=== PATIENT | male | born 1960 | race Caucasian/White ===

== ENCOUNTER 2017-05-21 03:32 | Inpatient (IN) | payer OTHER ==
[2017-05-21] MEDS ORDERED: Ondansetron HCl/PF 4 MG/2 ML Vial ONE (04:36)
[2017-05-21 05:21] LABS: Lactic Acid - Sepsis 2.7 mmol/L (0.5-2.2)
[2017-05-21] MEDS ORDERED: Promethazine HCl 25 MG/ML VIAL IM/IV PRN (06:02)
[2017-05-21] MEDS ORDERED: Morphine 4 MG/ML VIAL SLOW IVP PRN (06:02)
[2017-05-21] MEDS ORDERED: Ondansetron HCl/PF 8 MG in Sodium Chloride 0.9% 50 ML IVPB SCH (06:15)
[2017-05-21] MEDS ORDERED: Piperacillin/Tazobactam 4.5 GM in Sodium Chloride 0.9% 100 ML IVPB SCH (06:15)
[2017-05-21] MEDS ORDERED: Sodium Chloride 0.9% 500 ML IV SCH (06:15)
--- NOTE | 2017-05-21 06:20 | HP ---
CHIEF COMPLAINT: Abdominal pain. HISTORY OF PRESENT ILLNESS: The patient is a 57-year-old male who was diagnosed with a vocal cord an d laryngeal cancer. In 04/2016, he had a laryngectomy. In 06/2016, he has been on chemo and radiati on. He developed progressive weight loss and dysphagia and had a PEG tube placed in 02/2017. Since that he has been having some abdominal pain. Over the last 2-3 days, he has been vomiting with some hematemesis and developing increased upper and lower abdominal pain. He says this pain is mainly in the right upper and right lower quadrant right now. PAST MEDICAL HISTORY: Significant for hypertension, COPD, throat cancer. PAST SURGICAL HISTORY: He had throat surgery, hand surgery, G-tube placement. MEDICATIONS: Include hydrocodone, he is on 2 antibiotics and blood pressure medicine. ALLERGIES: No known drug allergies. SOCIAL HISTORY: He is a retired tar heel. He smokes one-half pack per day. He does try to drink alc ohol, but he is not able to take anything orally. He is . FAMILY HISTORY: His mother had Diamante Gehrig's disease. PHYSICAL EXAMINATION: VITAL SIGNS: Temperature 97.7, pulse 89, blood pressure 121/75. GENERAL: Very thin male, awake, alert. HEENT: He has a very hoarse voice and that is difficult to understand. He has multiple scarring of his neck. LUNGS: Hyperresonant. ABDOMEN: Scaphoid, soft, but tender fairly diffusely. He has a G-tube in the left upper quadrant an d a PEG tube. EXTREMITIES: Unremarkable. LABORATORY DATA AND IMAGING: His white count 8.4, H&H is 10 and 33, platelet count 305. Electrolyte s are fine. He had a CT scan showing the G-tube in the distal stomach. There is thickening of the d istal stomach and a tiny possible area of free fluid adjacent to the liver with free air. It is like a small bubble. ASSESSMENT: This could be a perforated ulcer, could be the air from the G-tube from the vomiting. PLAN: Admit, IV antibiotics, n.p.o., Protonix, serial exams. If he gets worse, he may need to be ex plored.
[2017-05-21 06:50] LABS: #Lymphocytes 0.4 thou/uL (1.20-3.40); #Monocytes 0.5 thou/uL (0.11-0.59); #Neutrophils 13.2 thou/uL (1.40-6.50); %Eosinophils 0.1 % (0.0-10.0); %Lymphocytes 2.8 % (21.0-51.0); %Monocytes 3.7 % (0.0-10.0); Hematocrit 32.2 % (42.0-52.0); Mean Platelet Volume 7.3 fL (7.4-10.4); Red Blood Cell (RBC) Count 3.22 mill/uL (4.70-6.10); White Blood Cell (WBC) Count 14.1 thou/uL (4.8-10.8)
[2017-05-21 07:09] LABS: Anion Gap 19 mmol/L (10-20); BUN (Urea Nitrogen) 52 mg/dL (8.4-25.7); Calc. Creatinine Clearance 0 mL/min (70-130); Calcium 9.7 mg/dL (7.8-10.44); Carbon Dioxide 26 mmol/L (22-29); Chloride 93 mmol/L (98-107); Estimated GFR-MDRD 69
[2017-05-21] MEDS ORDERED: Morphine 4 MG/ML VIAL ONE (07:10)
--- NOTE | 2017-05-21 08:19 | RAD ---
KUB: DATE: 05/21/17. COMPARISON: None. HISTORY: Bowel perforation, free intraperitoneal air seen on prior CT. FINDINGS: The small volume free intraperitoneal air seen on the prior CT is not seen on this radiograph, likely secondary to location of the free air and the small amount of the free air. There is a gastrostomy tube overlying the left upper quadrant. The bowel gas pattern appears nonobstructed. There is vascu lar calcification in the left upper quadrant and overlying the pelvis. IMPRESSION: Nonobstructed bowel pattern. The free intraperitoneal air present o the prior CT is not visualized o n this examination, likely secondary to technical factors. POS: [facility]
[2017-05-21] MEDS: Pantoprazole 40 MG VIAL IVP SCH ×2 (09:24→20:42)
[2017-05-21] MEDS: Morphine 4 MG/ML VIAL SLOW IVP PRN ×4 (09:24→22:13)
[2017-05-21] MEDS: D5 1/2 NS w/20 mEq KCL 1,000 ML IV SCH ×3 (09:41→20:42)
[2017-05-21] MEDS: MEROPENEM 1 GM/50 ML 1 GM in Premix Bag 1 BAG IVPB SCH ×2 (14:44→22:13)
--- NOTE | 2017-05-21 16:37 | PDOC.PN ---
- Subjective Encounter Start Date: 05/21/17 Encounter Start Time: 10:40 Pt seen for management of medical comorbidities, including hypertension. Reports abdo pain, denies chest pain, fevers or chills. - Objective MAR Reviewed: Yes Vital Signs & Weight: Vital Signs (12 hours) Temp Pulse Resp BP Pulse Ox 05/21/17 11:35 99.4 F 106 H 24 H 131/75 92 L 05/21/17 07:52 20 92 L 05/21/17 07:48 98.7 F 99 18 131/75 95 05/21/17 07:24 98.8 F 107 H 28 H 127/76 85 L Result Diagrams: 05/21/17 06:35 05/21/17 06:35 Phys Exam - Physical Examination Constitutional: NAD HEENT: moist MMs, oral pharynx no lesions Neck: supple Respiratory: clear to auscultation bilateral Cardiovascular: RRR Gastrointestinal: soft Mild RUQ tenderness, no guarding or rigidity; G-tube+ Musculoskeletal: pulses present Neurological: moves all 4 limbs Psychiatric: normal affect Dx/Plan (1) Hypertension Code(s): I10 - ESSENTIAL (PRIMARY) HYPERTENSION Status: Chronic (2) COPD (chronic obstructive pulmonary disease) Status: Chronic - Plan DVT proph w/SCDs * . Monitor vital signs, titrate antihypertensives as needed. Start PRN IV hydralazine. COPD appears to be stable. Review of Systems - Review of Systems Respiratory: negative: Cough, Dry, Shortness of Breath, Hemoptysis, SOB with Excertion, Pleuritic Pain, Sputum, Wheezing Cardiovascular: negative: Chest Pain, Palpitations, Orthopnea, Paroxysmal Noc. Dyspnea, Edema, Light Headedness Gastrointestinal: Abdominal Pain - Medications/Allergies Allergies/Adverse Reactions: Allergies Allergy/AdvReac Type Severity Reaction Status Date / Time No Known Allergies Allergy Verified 06/12/16 15:54 Medications: Current Medications Meropenem 1 gm/ Device 50 mls @ 100 mls/hr IVPB Q8HR [facility] Last Admin: 05/21/17 14:44 Dose: 50 mls Potassium Chloride/Dextrose/Sod Cl (D5 1/2 Ns W/20 Meq Kcl) 1,000 mls @ 125 mls /hr IV .Q8H [facility] Last Admin: 05/21/17 13:31 Dose: 1,000 mls Morphine Sulfate (Morphine) 2 mg SLOW IVP Q4H PRN PRN Reason: Mild-Moderate Pain (1-5) Morphine Sulfate (Morphine) 4 mg SLOW IVP Q4H PRN PRN Reason: Moderate to Severe Pain (6-10) Last Admin: 05/21/17 13:31 Dose: 4 mg Pantoprazole Sodium (Protonix) 40 mg IVP Q12HR [facility] Last Admin: 05/21/17 09:24 Dose: 40 mg Promethazine HCl (Phenergan) 25 mg IM/IV Q6H PRN PRN Reason: Nausea/Vomiting Sodium Chloride (Flush - Normal Saline) 10 ml IVF Q12HR [facility] Last Admin: 05/21/17 09:37 Dose: 10 ml Sodium Chloride (Flush - Normal Saline) 10 ml IVF PRN PRN PRN Reason: Saline Flush
[2017-05-21] MEDS ORDERED: Heparin 1,000 UNITS/ML VIAL ONE (17:00)
[2017-05-22] MEDS: Morphine 4 MG/ML VIAL SLOW IVP PRN ×5 (02:45→20:11)
[2017-05-22] MEDS: MEROPENEM 1 GM/50 ML 1 GM in Premix Bag 1 BAG IVPB SCH (05:41)
[2017-05-22] MEDS: D5 1/2 NS w/20 mEq KCL 1,000 ML IV SCH ×3 (05:41→20:10)
[2017-05-22] MEDS: Pantoprazole 40 MG VIAL IVP SCH ×2 (09:14→20:09)
[2017-05-22 12:53] LABS: PTT 25.7 SEC (22.9-36.1); PTT 40.1 SEC (22.9-36.1); Prothrombin Time 17.5 SEC (12.0-14.7); Prothrombin Time 17.7 SEC (12.0-14.7)
[2017-05-22 13:09] LABS: ALT (SGPT) 13 U/L (8-55); AST (SGOT) 17 U/L (5-34); Alkaline Phosphatase 69 U/L (40-150); Anion Gap 10 mmol/L (10-20); BUN (Urea Nitrogen) 27 mg/dL (8.4-25.7); Bilirubin, Total 1.3 mg/dL (0.2-1.2); Calc. Creatinine Clearance 94 mL/min (70-130); Calcium 9.3 mg/dL (7.8-10.44); Carbon Dioxide 28 mmol/L (22-29); Chloride 101 mmol/L (98-107); Cholesterol 124 mg/dl (< 200 Desired); Estimated GFR-MDRD Greater than 90; Globulin 3.8 g/dL (2.4-3.5); LDL Cholesterol, Calculated 65 mg/dL; Magnesium 1.7 mg/dL (1.6-2.6); Protein, Total 7.1 g/dL (6.0-8.3)
--- NOTE | 2017-05-22 13:47 | PDOC.PN ---
- Subjective Encounter Start Date: 05/22/17 Encounter Start Time: 08:40 Pt seen for followup re: hypertension. Denies chest pain, shortness of breath. Abdo pain better. - Objective MAR Reviewed: Yes Vital Signs & Weight: Vital Signs (12 hours) Temp Pulse Resp BP BP Pulse Ox 05/22/17 12:00 97.5 F L 99 14 129/79 92 L 05/22/17 11:05 97.9 F 97 20 151/80 H 92 L 05/22/17 08:00 97.9 F 97 20 142/99 H 92 L 05/22/17 03:58 99.1 F 95 18 125/73 92 L Weight Admit Weight 138 lb Weight 138 lb I&O: 05/21/17 05/22/17 05/23/17 06:59 06:59 06:59 Intake Total 3194 1200 Output Total 700 100 Balance 2494 1100 Result Diagrams: 05/21/17 06:35 05/22/17 12:37 Phys Exam - Physical Examination Constitutional: NAD HEENT: moist MMs Neck: supple Respiratory: clear to auscultation bilateral Cardiovascular: RRR Gastrointestinal: positive bowel sounds G-tube Musculoskeletal: pulses present Neurological: moves all 4 limbs Psychiatric: normal affect Skin: no rash, cap refill <2 seconds Dx/Plan (1) Hypertension Code(s): I10 - ESSENTIAL (PRIMARY) HYPERTENSION Status: Chronic (2) COPD (chronic obstructive pulmonary disease) Status: Chronic - Plan PT/OT, out of bed/ambulate, DVT proph w/SCDs Monitor BP and heart rate, titrate antihypertensives PRN. * . Review of Systems - Review of Systems Respiratory: negative: Cough, Dry, Shortness of Breath, Hemoptysis, SOB with Excertion, Pleuritic Pain, Sputum, Wheezing Cardiovascular: negative: Chest Pain, Palpitations, Orthopnea, Paroxysmal Noc. Dyspnea, Edema, Light Headedness - Medications/Allergies Allergies/Adverse Reactions: Allergies Allergy/AdvReac Type Severity Reaction Status Date / Time No Known Allergies Allergy Verified 05/21/17 20:16 Medications: Current Medications Potassium Chloride/Dextrose/Sod Cl (D5 1/2 Ns W/20 Meq Kcl) 1,000 mls @ 125 mls /hr IV .Q8H [facility] Last Admin: 05/22/17 05:41 Dose: 1,000 mls Meropenem 1 gm/ Sodium (Chloride) 100 mls @ 200 mls/hr IVPB Q8HR [facility] Multivitamins 10 ml/ TRACE ELEMENT CONCENTRATE 1 ml/Amino Acids/Electrolytes/ Fat Emulsion Intravenous 2,261 mls @ 94.208 mls/hr IV 2200 [facility] Morphine Sulfate (Morphine) 2 mg SLOW IVP Q4H PRN PRN Reason: Mild-Moderate Pain (1-5) Morphine Sulfate (Morphine) 4 mg SLOW IVP Q4H PRN PRN Reason: Moderate to Severe Pain (6-10) Last Admin: 05/22/17 11:03 Dose: 4 mg Pantoprazole Sodium (Protonix) 40 mg IVP Q12HR [facility] Last Admin: 05/22/17 09:14 Dose: 40 mg Promethazine HCl (Phenergan) 25 mg IM/IV Q6H PRN PRN Reason: Nausea/Vomiting Sodium Chloride (Flush - Normal Saline) 10 ml IVF Q12HR [facility] Last Admin: 05/22/17 09:15 Dose: Not Given Sodium Chloride (Flush - Normal Saline) 10 ml IVF PRN PRN PRN Reason: Saline Flush
[2017-05-22] MEDS: Meropenem 1 GM in Sodium Chloride 0.9% 100 ML IVPB SCH ×2 (13:51→21:16)
--- NOTE | 2017-05-22 15:33 | SPC ---
EXAM: ULTRASOUND GUIDED LEFT UPPER EXTREMITY PICC LINE PLACEMENT: COMPARISON: None. HISTORY: TPN required. FINDINGS: Technically successful left upper extremity PICC line placement. Trim length is 50 cm. Dual-lumen 5 Chinese catheter terminates in the SVC/right atrial junction. Both lumens flush and aspirate without difficulty. TECHNIQUE: Consent was obtained to perform a left upper extremity PICC line placement. The left arm was prepped and draped in sterile fashion. 1% Lidocaine, buffered with sodium bicarbonate, was used for local a nesthesia. Under ultrasound guidance, a micropuncture needle was used to cannulate the basilic vein. A 0.018 guide wire was then advanced through the needle to the level of the superior vena cava. Un jhony fluoroscopy, the wire was advanced into the inferior vena cava, to document venous access. The w jennifer was subsequently pulled back to the SVC/right atrial junction. Trim length is 50 cm. Both lumen flush and aspirate without difficulty. The patient tolerated the procedure well. No immediate postprocedure complication. EXPOSURE: 0.8 minutes. 3475 mGy*^cm2. IMPRESSION: Technically successful left upper extremity PICC line placement with ultrasound guidance. POS: [facility]
[2017-05-22] MEDS: Multivitamins, Adult 10 ML, TRACE ELEMENT CONCENTRATE 1 ML in D30W-AA 10% with Lytes 2,... IV SCH (22:20)
[2017-05-23] MEDS: Morphine 4 MG/ML VIAL SLOW IVP PRN ×6 (00:27→21:17)
[2017-05-23 05:04] LABS: #Eosinphils 0.1 thou/uL (0.0-0.7); #Lymphocytes 0.4 thou/uL (1.20-3.40); #Monocytes 0.5 thou/uL (0.11-0.59); #Neutrophils 9.8 thou/uL (1.40-6.50); %Basophils 0.2 % (0.0-1.0); %Eosinophils 0.5 % (0.0-10.0); %Lymphocytes 3.9 % (21.0-51.0); %Monocytes 4.6 % (0.0-10.0); Hematocrit 25.5 % (42.0-52.0); Mean Platelet Volume 7.6 fL (7.4-10.4); Red Blood Cell (RBC) Count 2.56 mill/uL (4.70-6.10); White Blood Cell (WBC) Count 10.8 thou/uL (4.8-10.8)
[2017-05-23 05:14] LABS: Anion Gap 11 mmol/L (10-20); BUN (Urea Nitrogen) 21 mg/dL (8.4-25.7); Calc. Creatinine Clearance 102 mL/min (70-130); Calcium 9.1 mg/dL (7.8-10.44); Carbon Dioxide 25 mmol/L (22-29); Chloride 104 mmol/L (98-107); Estimated GFR-MDRD Greater than 90
[2017-05-23] MEDS: Meropenem 1 GM in Sodium Chloride 0.9% 100 ML IVPB SCH ×3 (06:30→21:09)
[2017-05-23] MEDS: D5 1/2 NS w/20 mEq KCL 1,000 ML IV SCH ×3 (06:31→23:15)
[2017-05-23] MEDS: Pantoprazole 40 MG VIAL IVP SCH ×2 (08:11→21:08)
--- NOTE | 2017-05-23 13:39 | PRG ---
DATE OF SERVICE: 05/23/2017 ATTENDING PHYSICIAN: Margie Yeh M.D. SUBJECTIVE: A 57-year-old male, hospital day #2. Patient presented with abdominal pain. CT scan showed his previously placed G-tube in the distal stomach with thickening of the distal stomach and a tiny possible area of free fluid adjacent to the liver with free air. This was thought to be either a perforated ulcer or could be air from the G-tube. He was admitted to the Hospital Medicine Service, started on IV antibiotics and made strict n.p.o. OBJECTIVE: VITAL SIGNS: 99.3 temperature, 88 pulse, 24 respirations, O2 sat 91% on room air, blood pressure 129/60. GENERAL: Chronically ill-appearing male. HEENT: Unremarkable. CARDIOVASCULAR: Heart regular rate and rhythm. CHEST: Clear to auscultation. ABDOMEN: Soft, mildly tender in right lower quadrant. PEG tube in place to gravity drainage bag, 725 mL drainage output over 12 hours last p.m. LABORATORY DATA: WBC down to 10.8 today from 14.1 yesterday. ASSESSMENT: 1. 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 2. Status post PEG tube placement in 02/2017. 3. Pneumoperitoneum with tiny focus of free fluid. PLAN: Continue current care on floor as ordered with IV antibiotics, strict n.p.o., and IV fluids. Monitor serial abdominal exam. Continue IV antibiotics. Monitor WBC. If patient's clinical condition should deteriorate, consider operative intervention. History, ROS, physical exam, assessment and plan have been discussed with attending trauma surgeon. BRUNO
--- NOTE | 2017-05-23 14:16 | PDOC.PN ---
- Subjective Encounter Start Date: 05/23/17 Encounter Start Time: 09:40 Pt seen for followup re: hypertension. No chest pain or shortness of breath, no nausea or vomiting. - Objective MAR Reviewed: Yes Vital Signs & Weight: Vital Signs (12 hours) Temp Pulse Resp BP Pulse Ox 05/23/17 11:25 98.5 F 87 20 142/75 H 93 L 05/23/17 08:25 99.3 F 88 24 H 129/60 91 L 05/23/17 07:15 99.3 F 88 24 H 91 L 05/23/17 04:15 98.2 F 85 16 168/84 H 96 Weight Admit Weight 138 lb Weight 2.402 oz I&O: 05/22/17 05/23/17 05/24/17 06:59 06:59 06:59 Intake Total 3194 6508 Output Total 700 775 Balance 7615 2872 Result Diagrams: 05/23/17 04:26 05/23/17 04:26 Additional Labs: Accuchecks 05/23/17 05/23/17 05/22/17 11:50 06:04 23:38 POC Glucose 134 H 129 H 139 H Phys Exam - Physical Examination Constitutional: NAD HEENT: moist MMs, sclera anicteric Neck: supple Respiratory: clear to auscultation bilateral Cardiovascular: RRR, no rub Gastrointestinal: soft, positive bowel sounds RLQ tenderness Neurological: moves all 4 limbs Psychiatric: normal affect Dx/Plan (1) Hypertension Code(s): I10 - ESSENTIAL (PRIMARY) HYPERTENSION Status: Chronic (2) COPD (chronic obstructive pulmonary disease) Status: Chronic - Plan * . BP reasonable, monitor vital signs and titrate antihypertensives as needed. Continue IV antibiotics per surgical team. Review of Systems - Review of Systems Respiratory: negative: Cough, Dry, Shortness of Breath, Hemoptysis, SOB with Excertion, Pleuritic Pain, Sputum, Wheezing Cardiovascular: negative: Chest Pain, Palpitations, Orthopnea, Paroxysmal Noc. Dyspnea, Edema, Light Headedness - Medications/Allergies Allergies/Adverse Reactions: Allergies Allergy/AdvReac Type Severity Reaction Status Date / Time No Known Allergies Allergy Verified 05/21/17 20:16 Medications: Current Medications Potassium Chloride/Dextrose/Sod Cl (D5 1/2 Ns W/20 Meq Kcl) 1,000 mls @ 125 mls /hr IV .Q8H [facility] Last Admin: 05/23/17 06:31 Dose: Not Given Meropenem 1 gm/ Sodium (Chloride) 100 mls @ 200 mls/hr IVPB Q8HR [facility] Last Admin: 05/23/17 13:05 Dose: 100 mls Multivitamins 10 ml/ TRACE ELEMENT CONCENTRATE 1 ml/Amino Acids/Electrolytes/ Fat Emulsion Intravenous 2,261 mls @ 94.208 mls/hr IV 2200 [facility] Last Admin: 05/22/17 22:20 Dose: 2,261 mls Morphine Sulfate (Morphine) 2 mg SLOW IVP Q4H PRN PRN Reason: Mild-Moderate Pain (1-5) Morphine Sulfate (Morphine) 4 mg SLOW IVP Q4H PRN PRN Reason: Moderate to Severe Pain (6-10) Last Admin: 05/23/17 13:06 Dose: 4 mg Pantoprazole Sodium (Protonix) 40 mg IVP Q12HR [facility] Last Admin: 05/23/17 08:11 Dose: 40 mg Promethazine HCl (Phenergan) 25 mg IM/IV Q6H PRN PRN Reason: Nausea/Vomiting Sodium Chloride (Flush - Normal Saline) 10 ml IVF Q12HR [facility] Last Admin: 05/23/17 08:11 Dose: Not Given Sodium Chloride (Flush - Normal Saline) 10 ml IVF PRN PRN PRN Reason: Saline Flush
[2017-05-23] MEDS: Multivitamins, Adult 10 ML, TRACE ELEMENT CONCENTRATE 1 ML in D30W-AA 10% with Lytes 2,... IV SCH (22:00)
[2017-05-24] MEDS: Morphine 4 MG/ML VIAL SLOW IVP PRN ×6 (01:32→22:54)
[2017-05-24] MEDS: D5 1/2 NS w/20 mEq KCL 1,000 ML IV SCH ×3 (05:38→22:55)
[2017-05-24] MEDS: Meropenem 1 GM in Sodium Chloride 0.9% 100 ML IVPB SCH ×3 (06:09→22:08)
[2017-05-24] MEDS: Pantoprazole 40 MG VIAL IVP SCH ×2 (08:43→19:31)
--- NOTE | 2017-05-24 13:17 | PDOC.PN ---
- Subjective Encounter Start Date: 05/24/17 Encounter Start Time: 09:40 Pt seen for followup re: epistaxis. Denies light-headedness, chest pain, nausea or vomiting . - Objective MAR Reviewed: Yes Vital Signs & Weight: Vital Signs (12 hours) Temp Pulse Resp BP BP Pulse Ox 05/24/17 12:35 99.0 F 75 20 137/65 93 L 05/24/17 04:00 99.4 F 84 18 138/74 92 L Weight Admit Weight 138 lb Weight 156 lb 15.506 oz I&O: 05/23/17 05/24/17 05/25/17 06:59 06:59 06:59 Intake Total 5548 3141 Output Total 775 75 Balance 4773 3066 Result Diagrams: 05/23/17 04:26 05/23/17 04:26 Additional Labs: Accuchecks 05/24/17 05/24/17 05/23/17 12:24 05:33 23:34 POC Glucose 146 H 141 H 139 H 05/23/17 18:16 POC Glucose 149 H Phys Exam - Physical Examination Constitutional: NAD HEENT: moist MMs Nose exam: dried blood Neck: supple Respiratory: clear to auscultation bilateral Cardiovascular: RRR Gastrointestinal: soft Mild RLQ tenderness Musculoskeletal: pulses present Neurological: moves all 4 limbs Psychiatric: normal affect Dx/Plan (1) Epistaxis Code(s): R04.0 - EPISTAXIS Status: Acute (2) Hypertension Code(s): I10 - ESSENTIAL (PRIMARY) HYPERTENSION Status: Chronic (3) COPD (chronic obstructive pulmonary disease) Status: Chronic - Plan continue antibiotics, PT/OT, DVT proph w/SCDs * .Add humidifier in oxygen circuit. BP controlled. Pt is on IV antibiotics per surgical team. COPD stable. Review of Systems - Review of Systems Respiratory: negative: Cough, Dry, Shortness of Breath, Hemoptysis, SOB with Excertion, Pleuritic Pain, Sputum, Wheezing Cardiovascular: negative: Chest Pain, Palpitations, Orthopnea, Paroxysmal Noc. Dyspnea, Edema, Light Headedness - Medications/Allergies Allergies/Adverse Reactions: Allergies Allergy/AdvReac Type Severity Reaction Status Date / Time No Known Allergies Allergy Verified 05/21/17 20:16 Medications: Current Medications Potassium Chloride/Dextrose/Sod Cl (D5 1/2 Ns W/20 Meq Kcl) 1,000 mls @ 125 mls /hr IV .Q8H [facility] Last Admin: 05/24/17 05:38 Dose: Not Given Meropenem 1 gm/ Sodium (Chloride) 100 mls @ 200 mls/hr IVPB Q8HR [facility] Last Admin: 05/24/17 06:09 Dose: 100 mls Multivitamins 10 ml/ TRACE ELEMENT CONCENTRATE 1 ml/Amino Acids/Electrolytes/ Fat Emulsion Intravenous 2,261 mls @ 94.208 mls/hr IV 2200 [facility] Last Admin: 05/23/17 22:00 Dose: 2,261 mls Morphine Sulfate (Morphine) 2 mg SLOW IVP Q4H PRN PRN Reason: Mild-Moderate Pain (1-5) Morphine Sulfate (Morphine) 4 mg SLOW IVP Q4H PRN PRN Reason: Moderate to Severe Pain (6-10) Last Admin: 05/24/17 10:15 Dose: 4 mg Pantoprazole Sodium (Protonix) 40 mg IVP Q12HR [facility] Last Admin: 05/24/17 08:43 Dose: 40 mg Promethazine HCl (Phenergan) 25 mg IM/IV Q6H PRN PRN Reason: Nausea/Vomiting Sodium Chloride (Flush - Normal Saline) 10 ml IVF Q12HR [facility] Last Admin: 05/24/17 08:44 Dose: 10 ml Sodium Chloride (Flush - Normal Saline) 10 ml IVF PRN PRN PRN Reason: Saline Flush
--- NOTE | 2017-05-24 17:55 | PRG ---
DATE OF ENCOUNTER: 05/24/2017 This is Zachery Martínez PA-C dictating for Margie Yeh M.D. SUBJECTIVE: The patient appears to be stable. No acute events overnight and patient does ask when h e can go home and when discharge will be happening. It was informed to him that patient will be reev aluated tomorrow by Dr. Vegas, his surgeon. At this time, the patient still remains to be spitting u p some mucous type material as well as bloody discharge as well due to his cancer. At this time, the patient denies any shortness of breath or chest pain. No nausea or vomiting. OBJECTIVE: VITAL SIGNS: Current vital signs, temperature 99.4, pulse 84, respirations 18, O2 saturation 92%, an d blood pressure 138/74. GENERAL: No acute distress at this time. Patient is sitting up in bed. Oxygen in place. He is freddy ked up to TPN and infusing without issue. HEENT: Atraumatic and normocephalic. No JVD. Trachea is midline. RESPIRATORY: Diminished in the bases bilaterally. CARDIOVASCULAR: S1 and S2, regular rate and rhythm. ABDOMEN: Soft, mildly tender in the right upper quadrant, PEG tube is in place to gravity with drain age bag. 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 1. Status post PEG tube placement on 02/2017, pneumoperitoneum with tiny focus of free fluid. PLAN: Continue current care with IV antibiotics. Strict NPO and TPN. Continue to monitor abdominal exam. We appreciate the medical team input for medical management. If the patient continues to cli nically deteriorate, we will consider operative intervention. At this time, the patient has been see n and discussed with and agreed upon the above plan with Dr. Margie Yeh at the time of dictation.
[2017-05-24] MEDS: Multivitamins, Adult 10 ML, TRACE ELEMENT CONCENTRATE 1 ML in D30W-AA 10% with Lytes 2,... IV SCH (22:08)
[2017-05-25] MEDS: Morphine 4 MG/ML VIAL SLOW IVP PRN ×6 (03:05→22:39)
[2017-05-25] MEDS: Meropenem 1 GM in Sodium Chloride 0.9% 100 ML IVPB SCH ×3 (06:23→21:32)
[2017-05-25] MEDS: D5 1/2 NS w/20 mEq KCL 1,000 ML IV SCH ×2 (06:37→15:36)
[2017-05-25] MEDS: Pantoprazole 40 MG VIAL IVP SCH ×2 (09:26→21:32)
--- NOTE | 2017-05-25 10:45 | RAD ---
SMALL BOWEL LIMITED: Date: 05/25/17 HISTORY: Patient is a 57-year-old male with concern for perforation of the stomach or duodenum. TECHNIQUE: Gastrografin contrast media and some air was introduced into the stomach through the gastrostomy tube . FINDINGS: The stomach was well demonstrated. Contrast media moved through the antrum and into the duodenal bulb , and there was some emptying into the duodenum and even into the proximal jejunum. There is noted to be a confined tract extending cranially from the duodenal bulb over the course of approximately 5.0 cm, which gradually narrows. This is certainly concerning for a perforation tract. Some Gastrografin contrast media did extend somewhat into this tract, but not completely filling it. In addition to this elongated tract, there is an abnormal gas collection somewhere between the left l obe of the liver and the fundus and body of the stomach. This gas collection has a very irregular sha pe and maximally measures approximately 4.0 x 8.0 cm in transverse and craniocaudal dimension. The p reviously mentioned tract off the duodenal bulb points towards this region and I feel this is probabl y abnormal extraluminal gas that has collecting from this tract. There is no evidence for outlet obst ruction. No small bowel obstruction. IMPRESSION: There is an elongated tract extending cranially off the duodenal bulb which extends for approximately 5.0 cm pointing towards an abnormal extraluminal gas collection in the upper abdomen presumably betw een the liver and the fundus and body of the stomach, which presumably is abnormal extraluminal gas t hat has collected in this region from the elongated tract off the duodenal bulb. No evidence for free intraperitoneal extravasation of contrast. No evidence for outlet obstruction or small bowel obstruc tion. Findings were relayed to Dr. Larry Vegas by phone at 0920 hours. CODE CR. POS: [facility]
[2017-05-25 11:29] VITALS: BMI 24.1
--- NOTE | 2017-05-25 13:15 | CT ---
ABDOMEN AND PELVIS CT SCAN WITH IV CONTRAST: Date: 05/25/17 HISTORY: 57-year-old male with history of perforated ulcers, abdominal pain. FINDINGS: Marked three vessel coronary artery calcific disease. Small right pleural effusion. Atelectasis and/o r pneumonia involving the right middle lobe and right lower lobe with some mucus or secretions within the bronchus intermedius and some of the right lower lobe bronchi. Gastrostomy tube in place within the stomach. There is a multilobulated appearing fluid collection which appears to be contiguous with the greater curvature of the stomach. This fluid collection measures approximately 4.5 cm transversely and 11.0 c m in anterior posterior dimension and approximately 15.0 cm in craniocaudal dimension. It is of homog eneous low density and does not contain any gas. The norman of this collection appear to be fairly thi n and well-defined. There is, in addition to this collection, to be a second subhepatic collection wh ich measures approximately 3.0 x 5.0 cm in AP and transverse dimensions, and approximately 11.0 cm in craniocaudal dimension. There is also some minimal scattered free fluid around the right lobe of the liver. There is a partia lly contrast-filled and air-filled tract extending cranially off the posterior aspect of the duodenal bulb, extending into the region of the gastrohepatic ligament, where there is a larger collection of air measuring approximately 1.8 x 2.9 x 6.3 cm in size. The liver, gallbladder, pancreas, spleen, and adrenal glands appear unremarkable. There are considerable rotational changes of the right kidney, which is in a somewhat ptotic, low-lyi ng position, without evidence for renal calculus or acute obstruction. There appears to be a possible very tiny amount of free intraperitoneal fluid in the pelvis. Extensive arteriovascular calcific disease of the aorta and iliac vessels. IMPRESSION: 1. Penetrating tract from the duodenal bulb extending cranially with mostly gas in the region of the gastrohepatic ligament consistent with a presumed penetrating ulcer or other penetrating tract from the duodenum. 2. Loculated, somewhat lobulated, fluid collection which appears to be adherent to or directly invol lizeth with the greater curvature of the stomach. Somewhat smaller fluid collection in the subhepatic re gion. Both of these fluid collections have homogeneous low attenuation and appear to be uncomplicated and have not associated air or gas within them. 3. Small right pleural effusion with marked atelectasis and/or pneumonia of the right lower lobe and right middle lobe with some associated mucus or secretions within the bronchus intermedius and right lower lobe bronchi, consideration for bronchoscopy might allow further evaluation of this. 4. Low-lying ptotic, markedly rotated right kidney without renal calculus or acute obstruction. 5. Minimal free intraperitoneal fluid, primarily around the right lobe of the liver. 6. Gastrostomy tube. 7. No free intraperitoneal air. POS: [facility]
[2017-05-25] MEDS ORDERED: Iopamidol 370 76% 50 ML VIAL FS ONE (13:44)
[2017-05-25] MEDS ORDERED: ISOVUE-370 76%-LOCM 1 ML ONE (13:44)
[2017-05-25] MEDS ORDERED: MD-Gastroview 120 ML BOT ONE (13:52)
--- NOTE | 2017-05-25 16:42 | CON ---
DATE OF CONSULTATION: 05/25/2017 CONSULTING PHYSICIAN: Dr. Larry Vegas. REASON FOR CONSULTATION: Right lower lobe and right middle lobe atelectasis. HISTORY OF THE PRESENT ILLNESS: This is a 57-year-old male who is currently in the hospital for eval uation of abdominal pain as it pertains to recent PEG tube placement. He had a CT of the abdomen don e today which caught the lower part of the lung belle. He has an infiltrate and/or atelectasis in t he right lower lobe/right middle lobe region with possible mucus plugging proximal to that. He tells me he has been unable to cough for quite some time. 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 He was having the PEG tube placed ba in February for the purpose of feeding, but is now rely on TPN until that issue has resolved. PAST MEDICAL HISTORY: 1. Throat cancer 2. COPD. 3. Hypertension. PAST SURGICAL HISTORY: 1. Throat surgery. 2. Radiation to the throat area. 3. Hand surgery. 4. G-tube placement. MEDICATIONS PRIOR TO ADMISSION: Hydrocodone, he was also on some antibiotics. ALLERGIES: None. SOCIAL HISTORY: Smokes about half pack per day, heavier in the past, does not consistently drink alc ohol. FAMILY MEDICAL HISTORY: Remarkable for ALS. REVIEW OF SYSTEMS: Otherwise, negative. PHYSICAL EXAMINATION: VITAL SIGNS: Temperature 98.1, pulse 73, respirations 20, O2 sat 93%, blood pressure 144/71. GENERAL: He is awake and alert and is in no apparent distress. HEENT: Remarkable for very soft voice. He has very dry oral mucous membranes. NECK: He has radiation scars, no JVD. LUNGS: He has gross diminished breath sounds in the right base compared to the left. No rhonchi or wheezing. CARDIAC: S1 and S2 regular, without murmur. ABDOMEN: G-tube in place. ABDOMEN: Soft and nontender. EXTREMITIES: No edema. LABORATORY DATA AND IMAGING: White blood cell count 10.8, hematocrit 25.5, and platelet count 247. INR 1.4. Sodium 135, potassium 4.6, BUN 21, creatinine 0.7, glucose 116. I reviewed his CT scan per sonally. ASSESSMENT: 1. Right middle lobe/lower lobe pneumonia and/or atelectasis. 2. Possible mucus plugging. 3. Head and neck cancer. RECOMMENDATIONS: 1. I am going to try and treat him with EzPAP and nebulization treatments to see if we can stimulate his cough reflex and get the mucus out. I will repeat his chest x-ray tomorrow. If we are not able to make any progress with conservative measures, then he will need bronchoscopy. 2. Continue antibiotics as you are doing. 3. Consider adding low dose steroids for mucolytic effect.
--- NOTE | 2017-05-25 16:49 | PDOC.PN ---
- Subjective Encounter Start Date: 05/25/17 Encounter Start Time: 09:20 Pt seen for followup re: hypertension. Denies chest pain or shortness of breath. Abdo pain better. - Objective MAR Reviewed: Yes Vital Signs & Weight: Vital Signs (12 hours) Temp Pulse Resp BP Pulse Ox 05/25/17 11:25 98.1 F 73 20 144/71 H 93 L 05/25/17 07:55 98.8 F 73 18 125/63 94 L Weight Admit Weight 138 lb Weight 158 lb 11.725 oz I&O: 05/24/17 05/25/17 05/26/17 06:59 06:59 06:59 Intake Total 3141 Output Total 75 40 Balance 3066 -40 Result Diagrams: 05/23/17 04:26 05/23/17 04:26 Additional Labs: Accuchecks 05/25/17 05/25/17 05/24/17 11:28 05:55 23:42 POC Glucose 106 129 H 134 H 05/24/17 17:57 POC Glucose 135 H Phys Exam - Physical Examination Constitutional: NAD HEENT: moist MMs Neck: supple Respiratory: clear to auscultation bilateral Cardiovascular: RRR Gastrointestinal: soft G-tube+ Neurological: moves all 4 limbs Psychiatric: normal affect Dx/Plan (1) Hypertension Code(s): I10 - ESSENTIAL (PRIMARY) HYPERTENSION Status: Chronic (2) COPD (chronic obstructive pulmonary disease) Status: Chronic (3) Epistaxis Code(s): R04.0 - EPISTAXIS Status: Resolved - Plan * . Pt awaiting CT abdo /pelvis. Continue to monitor vital signs and titrate antihypertensives. Review of Systems - Review of Systems Cardiovascular: negative: Chest Pain, Palpitations, Orthopnea, Paroxysmal Noc. Dyspnea, Edema, Light Headedness Gastrointestinal: negative: Nausea, Vomiting, Abdominal Pain, Diarrhea, Constipation, Melena, Hematochezia - Medications/Allergies Allergies/Adverse Reactions: Allergies Allergy/AdvReac Type Severity Reaction Status Date / Time No Known Allergies Allergy Verified 05/21/17 20:16 Medications: Current Medications Albuterol/Ipratropium (Duoneb) 3 ml EZPAP [id number] [facility] Potassium Chloride/Dextrose/Sod Cl (D5 1/2 Ns W/20 Meq Kcl) 1,000 mls @ 125 mls /hr IV .Q8H [facility] Last Admin: 05/25/17 15:36 Dose: Not Given Meropenem 1 gm/ Sodium (Chloride) 100 mls @ 200 mls/hr IVPB Q8HR [facility] Last Admin: 05/25/17 15:31 Dose: 100 mls Multivitamins 10 ml/ TRACE ELEMENT CONCENTRATE 1 ml/Amino Acids/Electrolytes/ Fat Emulsion Intravenous 2,261 mls @ 94.208 mls/hr IV 2200 [facility] Last Admin: 05/24/17 22:08 Dose: 2,261 mls Morphine Sulfate (Morphine) 2 mg SLOW IVP Q4H PRN PRN Reason: Mild-Moderate Pain (1-5) Morphine Sulfate (Morphine) 4 mg SLOW IVP Q4H PRN PRN Reason: Moderate to Severe Pain (6-10) Last Admin: 05/25/17 15:31 Dose: 4 mg Pantoprazole Sodium (Protonix) 40 mg IVP Q12HR [facility] Last Admin: 05/25/17 09:26 Dose: 40 mg Promethazine HCl (Phenergan) 25 mg IM/IV Q6H PRN PRN Reason: Nausea/Vomiting Sodium Chloride (Flush - Normal Saline) 10 ml IVF Q12HR [facility] Last Admin: 05/25/17 09:26 Dose: 10 ml Sodium Chloride (Flush - Normal Saline) 10 ml IVF PRN PRN PRN Reason: Saline Flush
[2017-05-25] MEDS: Multivitamins, Adult 10 ML, TRACE ELEMENT CONCENTRATE 1 ML in D30W-AA 10% with Lytes 2,... IV SCH (22:04)
[2017-05-26] MEDS: Morphine 4 MG/ML VIAL SLOW IVP PRN ×4 (03:38→17:53)
[2017-05-26] MEDS: Meropenem 1 GM in Sodium Chloride 0.9% 100 ML IVPB SCH ×3 (04:54→21:22)
[2017-05-26 05:33] LABS: ALT (SGPT) 45 U/L (8-55); AST (SGOT) 28 U/L (5-34); Alkaline Phosphatase 105 U/L (40-150); Anion Gap 10 mmol/L (10-20); BUN (Urea Nitrogen) 18 mg/dL (8.4-25.7); Bilirubin, Total 0.9 mg/dL (0.2-1.2); Calc. Creatinine Clearance 134 mL/min (70-130); Calcium 8.7 mg/dL (7.8-10.44); Carbon Dioxide 23 mmol/L (22-29); Chloride 98 mmol/L (98-107); Estimated GFR-MDRD Greater than 90; Globulin 3.6 g/dL (2.4-3.5); Magnesium 1.2 mg/dL (1.6-2.6); Phosphorus 2.9 mg/dL (2.3-4.7); Protein, Total 6.7 g/dL (6.0-8.3)
[2017-05-26] MEDS: Pantoprazole 40 MG VIAL IVP SCH ×2 (08:22→21:22)
[2017-05-26] MEDS: D5 1/2 NS w/20 mEq KCL 1,000 ML IV SCH ×4 (08:22→21:23)
--- NOTE | 2017-05-26 09:12 | RAD ---
AP VIEW CHEST: HISTORY: Ventilator-dependent patient. FINDINGS: AP view chest is obtained on 05/26/17. AP view chest demonstrates a left upper extremity PICC line in place. There is loss of the right lung hemidiaphragm interface compatible with a right-sided pleural effusio n with or without some component of right lower lobe consolidation. The left lung is well aerated. Diffuse bilateral small calcifications seen compatible with possible previous inflammatory process an d secondary tiny granuloma formation and calcifications. IMPRESSION: Right-sided area of lung base opacity. This may represent an area of right lower lobe pneumonia or r ight-sided effusion. POS: [facility]
--- NOTE | 2017-05-26 09:55 | PDOC.PN ---
- Subjective Encounter Start Date: 05/26/17 Encounter Start Time: 08:40 Pt seen for followup re: pneumonia. Denies chest pain, reports cough. - Objective MAR Reviewed: Yes Vital Signs & Weight: Vital Signs (12 hours) Temp Pulse Resp BP BP Pulse Ox 05/26/17 07:50 98.6 F 86 24 H 129/64 92 L 05/26/17 06:10 86 16 94 L 05/26/17 03:43 99.1 F 82 18 121/65 97 05/26/17 01:00 98.6 F 79 20 132/71 95 Weight Admit Weight 138 lb Weight 2.561 oz I&O: 05/25/17 05/26/17 05/27/17 06:59 06:59 06:59 Intake Total 2752 Output Total 2165 Balance 587 Result Diagrams: 05/23/17 04:26 05/26/17 05:07 Additional Labs: Accuchecks 05/26/17 05/25/17 05/25/17 05:22 23:48 16:09 POC Glucose 126 H 130 H 126 H 05/25/17 11:28 POC Glucose 106 Phys Exam - Physical Examination Constitutional: NAD HEENT: moist MMs Neck: supple R basal crackles Cardiovascular: RRR Gastrointestinal: soft, non-tender Musculoskeletal: pulses present Neurological: moves all 4 limbs Psychiatric: normal affect Skin: no rash Dx/Plan (1) Pneumonia Code(s): J18.9 - PNEUMONIA, UNSPECIFIED ORGANISM Status: Acute (2) Hypertension Code(s): I10 - ESSENTIAL (PRIMARY) HYPERTENSION Status: Chronic (3) COPD (chronic obstructive pulmonary disease) Status: Chronic (4) Epistaxis Code(s): R04.0 - EPISTAXIS Status: Resolved - Plan continue antibiotics, DVT proph w/SCDs * . Continue IV antibiotics. Monitor vital signs, titrate antihypertensives as needed. Review of Systems - Review of Systems Constitutional: negative: Fever, Chills, Sweats, Weakness, Malaise Respiratory: Cough, Dry. negative: Shortness of Breath, Hemoptysis, SOB with Excertion, Pleuritic Pain, Sputum, Wheezing Cardiovascular: negative: Chest Pain, Palpitations, Orthopnea, Paroxysmal Noc. Dyspnea, Edema, Light Headedness - Medications/Allergies Allergies/Adverse Reactions: Allergies Allergy/AdvReac Type Severity Reaction Status Date / Time No Known Allergies Allergy Verified 05/21/17 20:16 Medications: Current Medications Albuterol/Ipratropium (Duoneb) 3 ml EZPAP [id number] [facility] Last Admin: 05/26/17 06:10 Dose: 3 ml Potassium Chloride/Dextrose/Sod Cl (D5 1/2 Ns W/20 Meq Kcl) 1,000 mls @ 125 mls /hr IV .Q8H [facility] Last Admin: 05/26/17 08:22 Dose: 1,000 mls Meropenem 1 gm/ Sodium (Chloride) 100 mls @ 200 mls/hr IVPB Q8HR [facility] Last Admin: 05/26/17 04:54 Dose: 100 mls Multivitamins 10 ml/ TRACE ELEMENT CONCENTRATE 1 ml/Amino Acids/Electrolytes/ Fat Emulsion Intravenous 2,261 mls @ 94.208 mls/hr IV 2200 [facility] Last Admin: 05/25/17 22:04 Dose: 2,261 mls Methylprednisolone Sodium Succinate (Solu-Medrol) 20 mg IVP Q6HR [facility] Morphine Sulfate (Morphine) 2 mg SLOW IVP Q4H PRN PRN Reason: Mild-Moderate Pain (1-5) Morphine Sulfate (Morphine) 4 mg SLOW IVP Q4H PRN PRN Reason: Moderate to Severe Pain (6-10) Last Admin: 05/26/17 08:23 Dose: 4 mg Pantoprazole Sodium (Protonix) 40 mg IVP Q12HR [facility] Last Admin: 05/26/17 08:22 Dose: 40 mg Promethazine HCl (Phenergan) 25 mg IM/IV Q6H PRN PRN Reason: Nausea/Vomiting Sodium Chloride (Flush - Normal Saline) 10 ml IVF Q12HR [facility] Last Admin: 05/26/17 08:22 Dose: 10 ml Sodium Chloride (Flush - Normal Saline) 10 ml IVF PRN PRN PRN Reason: Saline Flush
--- NOTE | 2017-05-26 10:03 | PRG ---
DATE OF SERVICE: 05/26/2017 SUBJECTIVE: He says that the pressurized nebulization treatments have helped him to produce more spu rom. Overall, he feels better compared to yesterday. PHYSICAL EXAMINATION: VITAL SIGNS: Temperature 98.6, pulse 86, respirations 24, O2 sat 92%, blood pressure 129/64. HEENT: Exam is remarkable for some mild bitemporal wasting. NECK: No JVD. LUNGS: Slightly diminished breath sounds in the right base compared to left, otherwise clear. CARDIAC: S1 and S2 regular. ABDOMEN: Soft. PEG tube noted. EXTREMITIES: No edema. IMAGING: Chest x-ray continues to show infiltrative changes in the right base. LABORATORY DATA: No new labs were obtained today except for chemistry; sodium 127, potassium 4.1, ch loride 98, CO2 23, BUN 18, creatinine 0.6, glucose 125. ASSESSMENT: 1. Right middle lobe and right lower lobe pneumonia. 2. Possible mucus plugging proximal to that. PLAN: 1. Continue EzPAP treatments. 2. Continue antibiotics. 3. Add Solu-Medrol.
[2017-05-26] MEDS: Multivitamins, Adult 10 ML, TRACE ELEMENT CONCENTRATE 1 ML in D30W-AA 10% with Lytes 2,... IV SCH (22:03)
[2017-05-27] MEDS: Morphine 4 MG/ML VIAL SLOW IVP PRN ×4 (02:23→14:56)
[2017-05-27] MEDS: Meropenem 1 GM in Sodium Chloride 0.9% 100 ML IVPB SCH ×2 (06:29→14:18)
[2017-05-27] MEDS: D5 1/2 NS w/20 mEq KCL 1,000 ML IV SCH ×2 (06:29→07:35)
[2017-05-27] MEDS: Pantoprazole 40 MG VIAL IVP SCH (08:07)
[2017-05-27 08:12] LABS: ALT (SGPT) 46 U/L (8-55); AST (SGOT) 28 U/L (5-34); Alkaline Phosphatase 141 U/L (40-150); Anion Gap 14 mmol/L (10-20); BUN (Urea Nitrogen) 23 mg/dL (8.4-25.7); Calc. Creatinine Clearance 131 mL/min (70-130); Calcium 9.1 mg/dL (7.8-10.44); Carbon Dioxide 19 mmol/L (22-29); Chloride 102 mmol/L (98-107); Estimated GFR-MDRD Greater than 90; Globulin 3.7 g/dL (2.4-3.5); Magnesium 1.8 mg/dL (1.6-2.6); Phosphorus 2.9 mg/dL (2.3-4.7); Protein, Total 6.8 g/dL (6.0-8.3)
--- NOTE | 2017-05-27 08:55 | PRG ---
DATE OF SERVICE: 05/27/2017 SUBJECTIVE: The patient is refusing EZPAP treatments because he says he does not like them. He is w anting to go home today. PHYSICAL EXAMINATION: VITAL SIGNS: Temperature 98.0, pulse 80, respirations 16, O2 sat 92%, blood pressure 131/68. HEENT: Unremarkable. NECK: No JVD. LUNGS: Actually clear bilaterally. CARDIOVASCULAR: S1 and S2 regular. ABDOMEN: Soft. PEG tube noted. EXTREMITIES: No edema. LABORATORY DATA: Sodium 130, potassium 4.5, chloride 102, CO2 19, BUN 23, creatinine 0.6, glucose 11 9. ASSESSMENT: 1. Aspiration pneumonia. 2. Possible partial right lung atelectasis. PLAN: The patient can be sent home on Augmentin 875 mg b.i.d. for 10 days and prednisone 20 mg daily for 10 days, both of these medications are to be taken to his PEG tube. I have asked him to follow up with me in 3-4 weeks to have his x-ray repeated. He is okay by me if he goes home today.
[2017-05-27 11:31] LABS: Hematocrit 24.8 % (42.0-52.0)
[2017-05-27 13:16] VITALS: BP 127/65; TEMP 98
--- NOTE | 2017-05-27 14:35 | PDOC.PN ---
- Subjective Encounter Start Date: 05/27/17 Encounter Start Time: 09:00 Pt seen for followup re: pneumonia. Reports cough, some sputum. Denies chest pain, shortness of breath. - Objective MAR Reviewed: Yes Vital Signs & Weight: Vital Signs (12 hours) Temp Pulse Resp BP Pulse Ox 05/27/17 12:15 98.0 F 69 18 127/65 95 05/27/17 08:10 98.1 F 77 20 123/57 L 92 L 05/27/17 07:45 98.1 F 77 20 92 L 05/27/17 03:41 98 F 80 16 131/68 92 L Weight Admit Weight 138 lb Weight 159 lb 6.307 oz I&O: 05/26/17 05/27/17 05/28/17 06:59 06:59 06:59 Intake Total 2752 3112 Output Total 2165 675 Balance 587 5857 Result Diagrams: 05/27/17 11:20 05/27/17 07:43 Additional Labs: Accuchecks 05/27/17 05/27/17 05/26/17 13:23 05:51 23:47 POC Glucose 121 H 165 H 162 H 05/26/17 17:56 POC Glucose 129 H Phys Exam - Physical Examination Constitutional: NAD HEENT: moist MMs Neck: supple Respiratory: no wheezing, no rales, no rhonchi, clear to auscultation bilateral Cardiovascular: RRR Gastrointestinal: soft G-tube+ Neurological: moves all 4 limbs Psychiatric: normal affect Dx/Plan (1) Pneumonia Code(s): J18.9 - PNEUMONIA, UNSPECIFIED ORGANISM Status: Acute (2) Hypertension Code(s): I10 - ESSENTIAL (PRIMARY) HYPERTENSION Status: Chronic (3) COPD (chronic obstructive pulmonary disease) Status: Chronic (4) Epistaxis Code(s): R04.0 - EPISTAXIS Status: Resolved - Plan * . Continue antibiotics. Plan to discharge patient noted, will sign off. Review of Systems - Review of Systems Constitutional: negative: Fever, Chills, Sweats, Weakness, Malaise Respiratory: Cough, Sputum. negative: Dry, Shortness of Breath, Hemoptysis, SOB with Excertion, Pleuritic Pain, Wheezing Cardiovascular: negative: Chest Pain, Palpitations, Orthopnea, Paroxysmal Noc. Dyspnea, Edema, Light Headedness - Medications/Allergies Allergies/Adverse Reactions: Allergies Allergy/AdvReac Type Severity Reaction Status Date / Time No Known Allergies Allergy Verified 05/21/17 20:16 Medications: Current Medications Potassium Chloride/Dextrose/Sod Cl (D5 1/2 Ns W/20 Meq Kcl) 1,000 mls @ 125 mls /hr IV .Q8H [facility] Last Admin: 05/27/17 07:35 Dose: 1,000 mls Meropenem 1 gm/ Sodium (Chloride) 100 mls @ 200 mls/hr IVPB Q8HR [facility] Last Admin: 05/27/17 14:18 Dose: 100 mls Multivitamins 10 ml/ TRACE ELEMENT CONCENTRATE 1 ml/Amino Acids/Electrolytes/ Fat Emulsion Intravenous 2,261 mls @ 94.208 mls/hr IV 2200 [facility] Last Admin: 05/26/17 22:03 Dose: 2,261 mls Methylprednisolone Sodium Succinate (Solu-Medrol) 20 mg IVP Q6HR [facility] Last Admin: 05/27/17 11:11 Dose: 20 mg Morphine Sulfate (Morphine) 2 mg SLOW IVP Q4H PRN PRN Reason: Mild-Moderate Pain (1-5) Last Admin: 05/26/17 22:02 Dose: 2 mg Morphine Sulfate (Morphine) 4 mg SLOW IVP Q4H PRN PRN Reason: Moderate to Severe Pain (6-10) Last Admin: 05/27/17 11:12 Dose: 4 mg Pantoprazole Sodium (Protonix) 40 mg IVP Q12HR [facility] Last Admin: 05/27/17 08:07 Dose: 40 mg Promethazine HCl (Phenergan) 25 mg IM/IV Q6H PRN PRN Reason: Nausea/Vomiting Sodium Chloride (Flush - Normal Saline) 10 ml IVF Q12HR [facility] Last Admin: 05/27/17 08:07 Dose: 10 ml Sodium Chloride (Flush - Normal Saline) 10 ml IVF PRN PRN PRN Reason: Saline Flush
--- NOTE | 2017-06-01 12:41 | DIS ---
DISCHARGE DIAGNOSES: Throat cancer, pneumoperitoneum, atelectasis of the lung, possible pneumonia, c hronic headaches. PROCEDURES DURING ADMISSION: CT scan of abdomen and pelvis, chest x-rays, IV antibiotics. HOSPITAL COURSE: Patient was admitted. Initial CT through the ER showed a small focus of free air. He had recently had a gastrostomy tube placed and had been vomiting just prior. He was admitted and placed on bowel rest. His G-tube was placed to gravity drain, treated with antibiotics. He got bet ter. Follow up CT showed some fluid collections that were thin walled, did not appear to be infected . Radiologist did not want to drain them, but they did see some very profound collapse or atelectasi s of the right lower lobe lung. Pulmonary was consulted. They treat him with some bronchodilators a nd steroids. He feels much better. A PICC line was placed. He was on TPN. He is now able to narendra ate his tube feedings again. We tried to get him to get a CT of the head per Dr. Greer, but he ref used, because he said he do not want to lay down flat, so he will notify Dr. Greer of that and will follow up with Dr. Greer. DISCHARGE MEDICATIONS: Include prednisone 20 per PEG tube daily and Augmentin 875 per PEG tube b.i.d . He will follow up with me in 2 weeks.
== END 2017-05-27 15:45 | disposition home or self-care (01) | DRG 393 ==
LOC: ERS 03:32 → SURG B 06:18
PROVIDERS: ADMIT Surgery; ATTEND Surgery
PROC: 02HV33Z Insertion of Infusion Device into Superior Vena Cava, Percutaneous Approach (ICD-10-PCS; principal; 2017-05-22)
PROC: 3E0436Z Introduction of Nutritional Substance into Central Vein, Percutaneous Approach (ICD-10-PCS; 2017-05-22)
DX: K66.8 Other specified disorders of peritoneum (principal); J18.9 Pneumonia, unspecified organism; E87.2 Acidosis; R13.10 Dysphagia, unspecified; J44.0 Chronic obstructive pulmonary disease with (acute) lower respiratory infection; Z93.1 Gastrostomy status; J98.11 Atelectasis; C32.9 Malignant neoplasm of larynx, unspecified; R04.0 Epistaxis; I10 Essential (primary) hypertension; F17.210 Nicotine dependence, cigarettes, uncomplicated; R51 Headache
CPT/HCPCS: 36415; 36416; 36569; 71010; 74000; 74177; 74250; 80048; 80053; 80061; 83605; 83735; 84100; 84134; 85014; 85018; 85025; 85610; 85730; 93005; 93010; 94640; 96361; 96365; 96375; A4216; C1751; C9113; J1170; J1644; J2185; J2270; J2405; J2543; J2550; J2920; J7050; J7620

== ENCOUNTER 2017-06-09 14:23 | Inpatient (IN) | payer OTHER ==
[2017-06-09 14:40] VITALS: BMI 18.5
[2017-06-09] MEDS ORDERED: Ondansetron HCl/PF 4 MG/2 ML Vial IVP PRN (15:50)
[2017-06-09] MEDS ORDERED: D5 1/2 NS w/20 mEq KCL 1,000 ML IV SCH (16:00)
[2017-06-09 16:35] LABS: #Eosinphils 0.1 thou/uL (0.0-0.7); #Lymphocytes 0.6 thou/uL (1.20-3.40); #Monocytes 0.9 thou/uL (0.11-0.59); #Neutrophils 13.3 thou/uL (1.40-6.50); %Eosinophils 0.4 % (0.0-10.0); %Monocytes 5.8 % (0.0-10.0); Hematocrit 20.3 % (42.0-52.0); Mean Platelet Volume 6.3 fL (7.4-10.4); White Blood Cell (WBC) Count 14.8 thou/uL (4.8-10.8)
[2017-06-09] MEDS: Morphine 4 MG/ML VIAL SLOW IVP PRN (16:36)
[2017-06-09 16:58] LABS: ALT (SGPT) 112 U/L (8-55); AST (SGOT) 55 U/L (5-34); Alkaline Phosphatase 341 U/L (40-150); Anion Gap 12 mmol/L (10-20); BUN (Urea Nitrogen) 25 mg/dL (8.4-25.7); Bilirubin, Direct 0.4 mg/dL (0.1-0.3); Bilirubin, Total 0.7 mg/dL (0.2-1.2); Calc. Creatinine Clearance 111 mL/min (70-130); Calcium 9.3 mg/dL (7.8-10.44); Carbon Dioxide 34 mmol/L (22-29); Chloride 91 mmol/L (98-107); Estimated GFR-MDRD Greater than 90; Lipase 18 U/L (8-78); Protein, Total 6.8 g/dL (6.0-8.3)
--- NOTE | 2017-06-09 17:04 | OP ---
PREOPERATIVE DIAGNOSIS: Poor IV access. SURGEON: Dr. Vegas. PROCEDURE PERFORMED: Central line placement. INDICATIONS FOR PROCEDURE: This is a 57-year-old male with laryngeal cancer who has lost a lot of hi s IV access due to chemotherapy, who has been admitted to the hospital for workup of abdominal pain a nd headaches as well as black stools and needs IV access. FINDINGS: Good backflow of venous blood, left subclavian. PROCEDURE IN DETAIL: After informed consent was obtained, the patient was placed in Trendelenburg po sition. His chest and neck were prepped and draped in usual fashion. Local anesthesia infiltrated s ubcutaneously and deep and an introducer needle was inserted in left subclavian with good backflow of venous blood. J-wire threaded easily. The skin and subcutaneous was dilated with the dilator and t he pre-flushed triple lumen catheter was inserted over the wire. The wire was removed. Each of the ports were aspirated. Good backflow of venous blood flushed with saline. This catheter was sutured in place with interrupted 3-0 silk suture. Sterile bandage applied. Chest x-ray obtained.
--- NOTE | 2017-06-09 18:42 | RAD ---
FRONTAL RADIOGRAPH CHEST 06/09/17 COMPARISON: 05/26/17 HISTORY: Evaluate chest following central line placement. FINDINGS: There is a left sided vascular catheter, distal tip overlying the expected location of the SVC. There is mild linear density in the right lung base, improved since the prior exam. No pneumothorax, large volume pleural effusion, lobar consolidation or alveolar edema. Numerous calcified pulmonary nodules noted, evidence of prior granulomatous disease. There is prominence of the right hilum, which may represent mass/adenopathy or vascular prominence. IMPRESSION: Right hilar prominence. Recommend 2 views of the chest for further assessment. POS: [facility]
--- NOTE | 2017-06-09 20:27 | CT ---
EXAM: PRE AND POSTCONTRAST HEAD CT 06/09/17 HISTORY: Headache. Laryngeal cancer. COMPARISON: None. TECHNIQUE: Pre and postcontrast head CT is performed in the axial plane. FINDINGS: Noncontrast head CT . No parenchymal hemorrhage. No extra-axial hematoma. No midline shift. Basilar cisterns are patent. Br ain volume is age appropriate. Cortical diaz white matter differentiation is preserved. There is asym metric prominence of the frontal horn of both lateral ventricles. Third ventricle and fourth ventricl e are not enlarged. Findings are nonspecific. Better interrogation with a brain MRI is recommended to assess the ventricular system. Chronic small vessel ischemic changes of the white matter are identified. Intact calvarium. Adequate aeration of the sinuses and mastoid air cells. Cavernous carotid atheroscl erosis. Small foci of remote insult in the right cerebellar hemisphere is noted. Postcontrast head CT: No pathologic enhancement of the brain parenchyma. IMPRESSION: No pathologic enhancement of the brain parenchyma. Prominence of the ventricular system. No obvious o bstructing mass to suggest obstructing hydrocephalus is appreciated. Nevertheless, better interrogati on with brain MRI can be performed. POS: [facility]
[2017-06-09] MEDS: HYDROcodone/Acetaminophen 5/325 mg Tablet PER TUBE PRN (20:29)
[2017-06-09] MEDS: Piperacillin/Tazobactam 3.375 GM in Sodium Chloride 0.9% 100 ML IVPB SCH (20:29)
--- NOTE | 2017-06-09 21:56 | CON ---
DATE OF CONSULTATION: 06/09/2017 REASON FOR CHIEF COMPLAINT: Abdominal pain and headaches. HISTORY OF PRESENT ILLNESS: This is a 57-year-old male, who had vocal cord and laryngeal cancer, had a laryngectomy in 04/2016. He was treated with chemo and radiation. He developed progressive dysph agia and weight loss and a PEG tube was placed in [facility] in 02/2017. He developed pain about 6 weeks post-procedure and a CT scan showed focused a small area near the PEG tube. He was treated with ant ibiotics to resolved. He has been having progressive abdominal pain since then, but he is tolerating his feedings. He has had black tarry stools. He does have vomiting, but no hematemesis. The pain is primarily in the epigastrium. He has noticed a bulge just below the umbilicus. PAST MEDICAL HISTORY: Significant for hypertension, COPD, and throat cancer. PAST SURGICAL HISTORY: Laryngectomy, hand surgery, G-tube placement. MEDICATIONS: Hydrocodone, antibiotics, and antihypertensive. ALLERGIES: He has known drug allergies. SOCIAL HISTORY: He is a retired records management assistant, smokes one-half pack per day. He occasionally drink alcoho l. He is . FAMILY HISTORY: Mother had Diamante Gehrig's disease. PHYSICAL EXAMINATION: VITAL SIGNS: Temperature 98, pulse 85, and blood pressure 125/66. GENERAL: Cachectic male, awake, and alert. HEENT: He has radiation changes to his head and neck. LUNGS: Clear. HEART: Regular rate and rhythm. ABDOMEN: Soft, cachectic. He does have what appears to be a small hernia near the umbilicus that is reducible. He has a PEG tube in the left upper quadrant that looks fine, they have beenusing the PE G tube. They just fed him today through it and no problems with that. LABORATORY DATA: His lab and x-rays are pending. ASSESSMENT: Multiple medical problems. Also he has a phobia of needles, so we are going to place a central line so he can get blood draws and he can get CT scans. We will follow with you.
--- NOTE | 2017-06-09 22:00 | PDOC.EVN ---
Event Note - Event Note Event Note: [id number] h&p dICTATED 1. Abdominal pain 2. GI bleed 3. h/o copd plan:P see orders
--- NOTE | 2017-06-09 22:01 | CT ---
EXAM: ABDOMEN CT WITH CONTRAST PELVIC CT WITH CONTRAST 06/09/17 HISTORY: Abdominal pain. Possible PEG tube leak. History of laryngeal cancer. COMPARISON: 05/25/17. TECHNIQUE: An abdomen and pelvic CT are performed with IV contrast. Enteric contrast was administered via the PE G tube. FINDINGS: ABDOMEN CT: Scar or atelectasis in the lingula. Possible pneumonia or atelectasis in the right lower lobe, incomp letely evaluation. The heart is enlarged. No significant pericardial fluid. Coronary calcifications a re identified. Abnormal appearance of the distal thoracic esophagus. Intra and extrahepatic portal vein is patent. There is periportal edema. Symmetric attenuation of the psoas muscles. The visualized aorta demonstrates stable atherosclerotic disease with significant pina cified plaque and luminal narrowing of both common iliac arteries. There is significant calcified rola que at the origin of the celiac artery. There is a small focus of air in the right perihepatic space, likely subcapsular in location. There i s associated fluid and hyperdensity. Previously, hyperdensity was not appreciated. There does appear to be a tract emanating from the duodenum which is contiguous with the pocket of air and intrinsic hy perdensity. If this tract is in fact real, the hyperdensity may represent administered oral contrast. The remainder of the right hepatic lobe is unremarkable. The aforementioned finding is along the med ial aspect of right hepatic lobe measuring 4.5 x 1.1 cm. Spleen, pancreas, and adrenal glands are unremarkable. Stable positioning of the kidneys. No evidence of hydronephrosis. There is nonspecific air in the right upper quadrant, perihepatic in location, inferior to the right hemidiaphragm. No mesenteric mass, lymphadenopathy. Small amount of free fluid in both pericolic gutt ers. Redemonstration of a peripherally enhancing, slightly loculated fluid collection along the great er curvature of the stomach currently measuring 8.8 x 3.2 cm (previously measuring 4.5 x 10.6 cm). Th ere has been slight interval decrease when compared to the prior exam. The PEG tube appears to be unchanged in position. There does not appear to be any extravasation or le ak of contrast at the PEG tube entry site. PELVIC CT: No pelvic mass, lymphadenopathy, free air or significant free fluid. Urinary bladder is unremarkable. There are no lytic or blastic lesions. IMPRESSION: 1. Redemonstration of pneumoperitoneum. There is hyperdensity adjacent to the posterior medial a spect of the right hepatic lobe. Previously, this was predominantly a fluid collection. Currently, th ere is a small pocket of air in the collection. Given that this tract appears to have a continuity wi th the duodenum, the hyperdensity may represent spilled contrast which is now essentially subhepatic in location. 2. PEG tube as above. 3. Interval decrease in size of a fluid collection adjacent to the greater curvature of the stom ach. 4. Stable atherosclerosis. 5. Stable positioning of the kidneys. 6. Lung parenchymal changes, incompletely evaluated. Possibility of pneumonia or atelectasis can not be excluded. POS: GRACE
[2017-06-09] MEDS ORDERED: Acetaminophen 325 MG TAB PO PRN (22:18)
[2017-06-09] MEDS ORDERED: Sodium Chloride 0.9% 1,000 ML IV SCH (22:30)
[2017-06-10] MEDS: Sodium Chloride 0.9% 1,000 ML IV SCH ×3 (00:11→19:59)
[2017-06-10] MEDS: Morphine 4 MG/ML VIAL SLOW IVP PRN ×4 (00:11→16:30)
[2017-06-10] MEDS: Piperacillin/Tazobactam 3.375 GM in Sodium Chloride 0.9% 100 ML IVPB SCH ×4 (03:04→20:00)
[2017-06-10] MEDS: HYDROcodone/Acetaminophen 5/325 mg Tablet PER TUBE PRN (03:11)
[2017-06-10 06:00] LABS: Hematocrit 21.6 % (42.0-52.0)
--- NOTE | 2017-06-10 07:34 | HP ---
DATE OF ADMISSION: 06/09/2017 CHIEF COMPLAINT: Abdominal pain. HISTORY OF PRESENT ILLNESS: The patient is a 57-year-old male with a past medical history of larynge al cancer hypertension, COPD, now came to the ER complaining of abdominal pain. Patient started havi ng abdominal pain 4 to 5 days back. Abdominal pain is intermittent associated with some nausea also. Patient complains of blood in the stool also. Symptoms persisted, so he came to the ER. Patient w as recently discharged from the hospital on 05/27/2017 with similar complaints. The patient . Denies any fever, denies any chills, denies any chest pain, denies any palpitations. Complains some cough, also complains of some sputum production. Abdominal pain is intermittent, crampy kind of pain , moderate in intensity clears with pain medication. Patient is tolerating tube feeds also. PAST MEDICAL HISTORY: As per HPI. PAST SURGICAL HISTORY: PEG tube placement, throat surgery, hand surgery. SOCIAL HISTORY: Nonsmoker. Denies drugs, denies alcohol. ALLERGIES: No known drug allergies. MEDICATIONS: Reviewed. REVIEW OF SYSTEMS: Constitutional: Denies any fever, denies any chills. Eyes: Denies any vision p roblems. Ears: Denies any hearing loss. Neck: Denies any neck pain. Cardiovascular system: Jax es any chest pain. Respiratory system: Positive for cough, positive for sputum production. Gastroi ntestinal: Positive for abdominal pain. Positive for bleeding per rectum. Musculoskeletal: Denies any joint deformity. Cranial nerves system: Denies syncope, denies lightheadedness. Psychiatric: anxiety. Integument: Denies any rash. All other systems are reviewed and are negative. PHYSICAL EXAMINATION: CONSTITUTIONAL/VITAL SIGNS: At the time of H&P performed, pulse ox is 92%, blood pressure is 137/70, heart rate 77, temperature 98. GENERAL: The patient appears comfortable. HEENT: Pupils are equal, round, and reactive. Anterior nares patent. Nose normal. Ears normal. T eeth intact. Tongue is moist. NECK: Supple, no JVD. CARDIOVASCULAR: S1, S2 present. Regular rate and rhythm. No murmurs, no rubs, no gallops. RESPIRATORY SYSTEM: No wheezing, no rhonchi present bilaterally. GASTROINTESTINAL: Abdomen is positive for small ventral hernia, positive for PEG tube. Mild tender to palpate. No guarding, no organomegaly. MUSCULOSKELETAL: Chronic skin changes, no edema. CRANIAL NERVE SYSTEM: Awake, follows commands. Speech: Positive for hoarse voice, which was chroni c per patient. PSYCHIATRIC: Mood calm at this time. LABORATORY DATA: At the time of H&P performed white count 14.8, hemoglobin 6.5, platelet count is 44 1. BMP showed sodium 133, potassium 3.6, chloride 91, CO2 of 34, BUN of 25, creatinine 0.62. ASSESSMENT AND PLAN: The patient is 57-year-old male. 1. Acute anemia. Plan to monitor the patient closely. Plan to start patient on type and cross and transfuse a unit of RBCs now. We will follow the patient closely. 2. Abdominal pain, plus bleeding per rectum. CT abdomen and pelvis was done which was pending at th is time. We will follow the CT. General Surgery is on board. We will go ahead and consult GI also to evaluate the patient. 3. History of dysphagia. Hold tube feeds for now for possible intervention. Keep the patient n.p.o . 4. History of chronic obstructive pulmonary disease. Continue breathing treatment. Monitor respira tory status closely. Continue oxygen nasal cannula p.r.n. Case was discussed in detail with the patient also.
[2017-06-10] MEDS ORDERED: Pantoprazole 40 MG VIAL IVP SCH (09:00)
[2017-06-10 09:11] LABS: Hematocrit 22.6 % (42.0-52.0)
--- NOTE | 2017-06-10 15:26 | PDOC.PN ---
- Subjective Encounter Start Date: 06/10/17 Encounter Start Time: 15:25 Mr. Giordano was seen today in follow-up of abdominal pain. He says he continues to have burning all over his abdomen. He also says that at times he throws-up his tube feeding. He also noted a hernia to recently " pop-up" . - Objective MAR Reviewed: Yes Vital Signs & Weight: Vital Signs (12 hours) Temp Pulse Resp BP Pulse Ox 06/10/17 08:00 98.3 F 77 20 141/72 H 97 Weight Admit Weight 133 lb Weight 133 lb I&O: 06/09/17 06/10/17 06/11/17 06:59 06:59 06:59 Intake Total 1415 Balance 1415 Result Diagrams: 06/10/17 09:00 06/09/17 16:20 Phys Exam - Physical Examination HEENT: PERRLA Respiratory: no wheezing, no rales, no rhonchi, clear to auscultation bilateral Cardiovascular: RRR, no significant murmur Gastrointestinal: soft Musculoskeletal: no edema Dx/Plan (1) Abdominal pain Code(s): R10.9 - UNSPECIFIED ABDOMINAL PAIN Status: Acute (2) Laryngeal cancer Status: Acute (3) COPD (chronic obstructive pulmonary disease) Status: Chronic (4) Hypertension Code(s): I10 - ESSENTIAL (PRIMARY) HYPERTENSION Status: Chronic - Plan * Abdominal Pain- ? etiology- await GI evaluation- Discussed with GI will plan for EGD in the AM * Continue Empiric Zosyn and Levaquin * ? Pneumonia- this is being covered with Zosyn and Levaquin- may need repeat Chest X-ray in AM * Chronic respiratory failure from COPD- stable * HTN- blood pressure is stable * Laryngeal Cancer- stable.
[2017-06-10] MEDS: Pantoprazole 40 MG VIAL IVP SCH (19:59)
--- NOTE | 2017-06-10 20:49 | CON ---
DATE OF CONSULTATION: 06/10/2017 REQUESTING PHYSICIAN: Micky Gill M.D. REASON FOR CONSULTATION: GI bleeding. 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 He developed progressive dysphagia and weight loss. So he had a PEG tu be placed in [place] in 02/2017. Several weeks after that procedure, he started developing abdominal pain, which was generalized. On initial CT evaluation, he has a small focus of air and fluid around the PEG site, but on a more recent hospitalization in May, he was found to have a larger fluid c ollection near the greater curvature of the stomach. There was also suggestion of possible duodenal ulcer on CT from May. He presented to the hospital again and was admitted yesterday with progre ssive abdominal pain. He also reports that about a week ago, he had 4 days of stools, which were jet black and loose. He has actually not had any bowel movements for the past several days since then. On evaluation, he was found to have a significant anemia with hemoglobin 6.5, though this this bounc ed up to 7.3 on its own today, looks like his baseline hemoglobin is 8 or 8.5. He also had another C T of the abdomen and pelvis and this one shows 4.5 cm fluid and air density in the right subhepatic s pace with possible track into the duodenum. This possibly represents penetrating duodenal ulcer. Th ere is a stable amount of fluid along the greater curvature of the stomach, not changed in size from before. The PEG tube is in place, but there was no extravasation of contrast from the PEG site itsel f. The patient is currently on IV Protonix. Dr. Vegas has evaluated him and put in a central line. We are consulted to consider endoscopic investigation of the melena and also this area at the [facility]. REVIEW OF SYSTEMS: Full review of systems including constitutional, head, eyes, ears, nose, throat, GI, , cardiovascular, respiratory, musculoskeletal, and neurologic systems is negative except as no med in the HPI. PAST MEDICAL HISTORY: Hypertension, COPD, laryngeal cancer. PAST SURGICAL HISTORY: Laryngectomy in 2015, PEG tube placement in 02/2017, hand surgery. OUTPATIENT MEDICATIONS: Hydrocodone. ALLERGIES: No known drug allergies. SOCIAL HISTORY: He smokes one-half pack per day. Occasional alcohol use. FAMILY HISTORY: Mother had ALS. PHYSICAL EXAMINATION: VITAL SIGNS: Temperature 98.3, pulse 77, blood pressure 141/72, 97% oxygen saturation on room air. GENERAL: Chronically ill 57-year-old man sitting up in bed comfortably in no distress. SKIN: No jaundice, no rashes were palpable. EYES: No scleral icterus. Extraocular movements intact. ENT: Mucous membranes moist, no oral lesions. The patient has a characteristic radiation changes to the neck with reduced mobility. HEART: Regular rate and rhythm. LUNGS: Clear to auscultation bilaterally. ABDOMEN: Bowel sounds present, soft, some tenderness to palpation throughout. No guarding or reboun d tenderness. His PEG tube is in place in the left upper quadrant. PEG site looks good. EXTREMITIES: No peripheral edema. VESSELS: Radial pulses 2+ bilaterally. NEUROLOGICAL: Cranial nerves II-XII intact bilaterally. No focal deficits. LABORATORY STUDIES: WBC 14.8, hemoglobin 7.3, MCV 102, platelets 441, BUN 25, creatinine 0.62. Lipa se 18. Total bilirubin 0.4, alkaline phosphatase 341, AST 55, ALT 112, albumin 3.2. IMAGING STUDIES: CT of the head showed prominence of the ventricular system. CT of the abdomen and pelvis demonstrated a 4.5 cm fluid density in the right subhepatic space with possible pocket of air in the area. There is also possible tract from that area into the duodenum. There is stable fluid c ollection along the greater curvature of the stomach. The PEG tube is in place, but no extravasation of contrast from the PEG site itself. ASSESSMENT AND PLAN: 1. Melena. 2. Chronic anemia. 3. Generalized abdominal pain. 4. Abnormal CT scan of the duodenum, suggestive of possible penetrating duodenal ulcer. I spoke wit h Dr. Vegas on the phone regarding this case. This is certainly a complicated situation. It is uncl ear whether this is fluid collection in his abdomen was represented extravasation from the PEG site i tself, or whether he might have a duodenal ulcer or fistula behind the intra-abdominal fluid collecti ons. Dr. Vegas is requested we consider endoscopic investigation to try to help sort this out. I th ink that would be reasonable, though obviously higher risk in this patient. I discussed this with th e patient and he is okay with proceeding. We will plan for EGD tomorrow. In the meantime, continue IV PPI. Hold any tube feeds oral intake after midnight.
[2017-06-11] MEDS: Piperacillin/Tazobactam 3.375 GM in Sodium Chloride 0.9% 100 ML IVPB SCH ×4 (02:07→19:50)
[2017-06-11] MEDS: Sodium Chloride 0.9% 1,000 ML IV SCH ×3 (02:07→23:52)
[2017-06-11] MEDS: Morphine 4 MG/ML VIAL SLOW IVP PRN ×5 (02:11→23:55)
[2017-06-11 06:13] LABS: Anion Gap 9 mmol/L (10-20); BUN (Urea Nitrogen) 15 mg/dL (8.4-25.7); Calc. Creatinine Clearance 100 mL/min (70-130); Calcium 8.4 mg/dL (7.8-10.44); Carbon Dioxide 27 mmol/L (22-29); Chloride 101 mmol/L (98-107); Estimated GFR-MDRD Greater than 90
[2017-06-11 06:18] LABS: Band 1 % (5-11); Hematocrit 21.2 % (42.0-52.0); Mean Platelet Volume 6.3 fL (7.4-10.4); Neutrophil 85 % (42-75)
[2017-06-11] MEDS: Pantoprazole 40 MG VIAL IVP SCH ×2 (07:34→19:50)
[2017-06-11] MEDS ORDERED: Morphine Sulfate 2 MG/ML SYRINGE SLOW IVP PRN (10:48)
[2017-06-11] MEDS ORDERED: Meperidine HCl/PF 25 MG/ML VIAL SLOW IVP PRN (10:48)
[2017-06-11] MEDS ORDERED: Promethazine HCl 25 MG/ML VIAL SLOW IVP PRN (10:48)
[2017-06-11] MEDS ORDERED: Ondansetron HCl/PF 4 MG/2 ML Vial IVP PRN (10:48)
--- NOTE | 2017-06-11 11:28 | OP ---
DATE OF PROCEDURE: 06/11/2017 PROCEDURE PERFORMED: Esophagogastroduodenoscopy with biopsy. PREOPERATIVE DIAGNOSES: Epigastric pain and abnormal CT scan showing fluid collections in the abdome n. OPERATIVE NOTE: Informed consent was obtained from the patient. He was sedated with total intraveno us anesthesia. The bite block was placed and the endoscope was advanced easily to the second portion of the duodenum and retroflexion was performed in the stomach. There was a 1 cm necrotic ulceration next to the vocal cords. The endoscope could be advanced without difficulty through the upper esoph ageal sphincter. There was grade C erosive esophagitis in the distal esophagus. The GE junction was otherwise normal. The stomach was normal including retroflexed views. Biopsies were obtained from the stomach to rule out H. pylori. The first portion of the duodenum was normal. Just past the firs t portion of the duodenum into the C-loop of the duodenum proximally along the lateral wall, there wa s a 2 cm ulcer. In the base of this ulcer was a hole that penetrates deeply beyond visualization wit h the scope. The remainder of the second portion of the duodenum was normal. IMPRESSION: 1. A 1 cm necrotic appearing ulcer next to the vocal cords. 2. Grade C erosive esophagitis. 3. A 2 cm ulcer in the proximal second portion of the duodenum along the lateral wall. In the base of this ulcer is a hole that penetrates deeply beyond view of the scope. The remainder of the duoden um and stomach were normal. Gastric biopsies were taken to rule out Helicobacter pylori. 4. A gastrostomy bumper was noted to be in good position in the body of the stomach. RECOMMENDATIONS: 1. Await histopathology. 2. Proton pump inhibitor. 3. Surgical treatment will likely be necessary. 4. ENT followup.
[2017-06-11] MEDS ORDERED: Bisacodyl 10 MG SUPP PR PRN (12:17)
--- NOTE | 2017-06-11 16:47 | PDOC.PN ---
- Subjective Encounter Start Date: 06/11/17 Encounter Start Time: 16:46 Mr. Giordano was seen today in follow-up of Abdominal pain and vomiting. He says the abdominal still persists. He also notes some constipation. He is aware of the findings from the EGD. He would still like to go home. - Objective MAR Reviewed: Yes Vital Signs & Weight: Vital Signs (12 hours) Temp Pulse Resp BP Pulse Ox 06/11/17 08:00 98.3 F 87 20 130/72 95 Weight Admit Weight 133 lb Weight 133 lb I&O: 06/10/17 06/11/17 06/12/17 06:59 06:59 06:59 Intake Total 1415 1266 Balance 1415 1266 Result Diagrams: 06/11/17 05:10 06/11/17 05:10 Phys Exam - Physical Examination HEENT: PERRLA Respiratory: no wheezing, no rales, no rhonchi, clear to auscultation bilateral Cardiovascular: RRR, no significant murmur, no rub Gastrointestinal: soft, positive bowel sounds + mild diffuse tenderness Musculoskeletal: no edema Dx/Plan (1) Abdominal pain Code(s): R10.9 - UNSPECIFIED ABDOMINAL PAIN Status: Acute (2) Laryngeal cancer Status: Acute (3) COPD (chronic obstructive pulmonary disease) Status: Chronic (4) Hypertension Code(s): I10 - ESSENTIAL (PRIMARY) HYPERTENSION Status: Chronic (5) Duodenal ulcer Status: Acute (6) Esophagitis, [place] grade C Code(s): K20.8 - OTHER ESOPHAGITIS Status: Acute (7) Acute blood loss anemia Code(s): D62 - ACUTE POSTHEMORRHAGIC ANEMIA Status: Acute - Plan * Mr. Giordano was found to have a large deep duodenal Ulcer, in addition to Briana C esophagitis- Continue Protonix, and Dr. Jacob plans to consult with Dr. Vegas as to how to proceed. * Patient was also found to have an ulcer on the vocal cords- this will require outpatient ENT evaluation * HTN- blood pressure is stable * COPD- stable * Acute blood loss anemia- his H&H has dropped again to 6.8- will transfuse a unit- re-check his HGB in the AM
[2017-06-11] MEDS ORDERED: Propofol 200 MG/20 ML VIAL ONE (17:23)
[2017-06-12] MEDS: Piperacillin/Tazobactam 3.375 GM in Sodium Chloride 0.9% 100 ML IVPB SCH ×3 (02:05→15:19)
[2017-06-12] MEDS: Sodium Chloride 0.9% 1,000 ML IV SCH (02:07)
[2017-06-12 05:14] LABS: Hematocrit 23.6 % (42.0-52.0)
[2017-06-12 07:55] VITALS: BP 127/62; TEMP 97.8
[2017-06-12] MEDS: Morphine 4 MG/ML VIAL SLOW IVP PRN ×2 (08:48→14:00)
[2017-06-12] MEDS: Pantoprazole 40 MG VIAL IVP SCH (08:52)
[2017-06-12] MEDS: HYDROcodone/Acetaminophen 5/325 mg Tablet PER TUBE PRN (11:34)
--- NOTE | 2017-06-12 12:46 | PRG ---
DATE OF SERVICE: 06/12/2017 GI INPATIENT DAILY PROGRESS NOTE SUBJECTIVE: Mr. Giordano is feeling okay today. His abdominal discomfort persists, but is manageable. No nausea or vomiting. OBJECTIVE: VITAL SIGNS: Temperature 97.8, pulse 63, blood pressure 127/62, 98% oxygen saturation on room air. GENERAL: Chronically ill, no acute distress. HEART: Regular rate and rhythm. LUNGS: Clear to auscultation bilaterally. ABDOMEN: PEG site looks good, soft, some tenderness to palpation in the epigastrium. EXTREMITIES: No peripheral edema. LABORATORY STUDIES: Hemoglobin 7.7 and platelets 394. Sodium 133, potassium 4.0, BUN 15, and creati nine 0.69. ASSESSMENT AND PLAN: 1. Duodenal ulcer with perforation. 2. Intraabdominal fluid collections, secondary to perforated duodenal ulcer. Dr. Jacob discussed e case with Dr. Vegas yesterday, reviewed notes from today. From a gastrointestinal and an endoscopi c standpoint, there is nothing more that can be done at this point except for twice daily full dose a roman suppression, which needs to be continued. Ultimately, I suspect that this is going to be a surgi pina issue. I see Dr. Vegas's plan is to have the patient on antibiotics and follow up in a couple of weeks. Nothing else further from a gastrointestinal standpoint at this time. The patient is wantin g to go home. GI will sign off, but please call back with questions or concerns.
--- NOTE | 2017-06-12 14:45 | PDOC.PN ---
- Subjective Encounter Start Date: 06/12/17 Encounter Start Time: 14:43 Mr. Giordano was seen today in follow-up. He does not have any new complaints. - Objective MAR Reviewed: Yes Vital Signs & Weight: Vital Signs (12 hours) Temp Pulse Resp BP Pulse Ox 06/12/17 08:00 97.8 F 63 16 96 06/12/17 07:54 97.8 F 63 16 127/62 96 Weight Admit Weight 133 lb Weight 133 lb I&O: 06/11/17 06/12/17 06/13/17 06:59 06:59 06:59 Intake Total 1266 350 Balance 1266 350 Result Diagrams: 06/12/17 04:40 06/11/17 05:10 Phys Exam - Physical Examination HEENT: PERRLA Respiratory: no wheezing, no rales, no rhonchi, clear to auscultation bilateral Cardiovascular: RRR, no significant murmur, no rub Gastrointestinal: soft, non-tender, positive bowel sounds Musculoskeletal: no edema Dx/Plan (1) Abdominal pain Code(s): R10.9 - UNSPECIFIED ABDOMINAL PAIN Status: Acute (2) Laryngeal cancer Status: Acute (3) COPD (chronic obstructive pulmonary disease) Status: Chronic (4) Hypertension Code(s): I10 - ESSENTIAL (PRIMARY) HYPERTENSION Status: Chronic (5) Duodenal ulcer Status: Acute (6) Esophagitis, [place] grade C Code(s): K20.8 - OTHER ESOPHAGITIS Status: Acute (7) Acute blood loss anemia Code(s): D62 - ACUTE POSTHEMORRHAGIC ANEMIA Status: Acute - Plan * Duodenal Ulcer with perforation- GI and Surgery evaluation was noted * Will discharge him home on Protonix twice a day, as well as oral antibiotics * He will follow-up with Dr. Vegas as an Outpatient.
--- NOTE | 2017-06-12 22:48 | DIS ---
PRIMARY CARE: The patient does not have a primary care physician. DATE OF ADMISSION: 06/09/2017 DATE OF DISCHARGE: 06/12/2017 DISCHARGE DISPOSITION: Home. PRIMARY DISCHARGE DIAGNOSES: 1. Duodenal ulcer with perforation. 2. Acute blood loss anemia. 3. History of head and neck cancer. 4. History of chronic respiratory failure secondary to chronic obstructive pulmonary disease. 5. Hypertension. DISCHARGE MEDICATIONS: Include [place] 10/325 one tablet q.4 hours as needed for pain, Protonix 40 mg twice daily, Augmentin 250 mL per 5 mL, 10 mL q.8. for 45 days. CODE STATUS: Full code. ALLERGIES: No known drug allergies. HOSPITAL COURSE: Mr. Giordano is a 57-year-old, who was admitted to the hospital with complaints of jason re intractable abdominal pain as well as burning. He also was having difficulty keeping food down. He was admitted and started on IV fluids as well as IV Protonix. He was also noted to have a drop in his hemoglobin. He was started on IV proton pump inhibitor. He required 2 units of blood transfusi ons during his hospital stay. He was evaluated by both General Surgery as well as Gastroenterology. He was found to have a duodenal ulcer, which is felt to be perforated by EGD as well as a necrotic u lcer around his vocal cords and grade C erosive gastritis. Dr. Patterson conferred with Dr. Vegas with luther gavin to possible surgery, with regards to the presumed perforated duodenal ulcer as it was found david t he had some pneumoperitoneum on CT scan as well. Unfortunately, the patient is a very poor surgica l candidate given his COPD and significant other comorbidities and as a result, Dr. Vegas decided to try conservative management first with oral antibiotics as well as Protonix for approximately a month and then reevaluate him in the outpatient setting. His tube feeds were changed from the Ensure Enli ve to Jevity 1.5 and he was subsequently able to be discharged home.
== END 2017-06-12 15:53 | disposition home or self-care (01) | DRG 378 ==
LOC: T4-A 14:23
PROVIDERS: ADMIT Internal Medicine Infectious Disease; ATTEND Internal Medicine Infectious Disease
PROC: 02HV33Z Insertion of Infusion Device into Superior Vena Cava, Percutaneous Approach (ICD-10-PCS; 2017-06-09)
PROC: 0DB68ZX Excision of Stomach, Via Natural or Artificial Opening Endoscopic, Diagnostic (ICD-10-PCS; principal; 2017-06-11)
DX: K26.6 Chronic or unspecified duodenal ulcer with both hemorrhage and perforation (principal); K22.10 Ulcer of esophagus without bleeding; J96.10 Chronic respiratory failure, unspecified whether with hypoxia or hypercapnia; R64 Cachexia; R18.8 Other ascites; D62 Acute posthemorrhagic anemia; Z68.1 Body mass index [BMI] 19.9 or less, adult; I10 Essential (primary) hypertension; Z85.21 Personal history of malignant neoplasm of larynx; K62.5 Hemorrhage of anus and rectum; J44.9 Chronic obstructive pulmonary disease, unspecified; D64.9 Anemia, unspecified; Z85.89 Personal history of malignant neoplasm of other organs and systems; J38.3 Other diseases of vocal cords; K29.60 Other gastritis without bleeding; Z90.02 Acquired absence of larynx; F17.200 Nicotine dependence, unspecified, uncomplicated; K42.9 Umbilical hernia without obstruction or gangrene; F40.8 Other phobic anxiety disorders
CPT/HCPCS: 36430; 70470; 71010; 74177; 80048; 80076; 82150; 83690; 85014; 85018; 85025; 85049; 86850; 86900; 86901; 88305; 88312; C9113; J2270; J2405; J2543; J2704; J7050; P9016

== ENCOUNTER 2017-09-13 23:03 | Emergency (ER) | payer OTHER ==
--- NOTE | 2017-09-14 08:20 | RAD ---
ABDOMEN 1 VIEW: Date: 09/14/17 HISTORY: Replaced T tube. COMPARISON: Abdomen radiograph from 2017. FINDINGS: There is contrast within a gastrostomy tube with contrast within the stomach and proximal small bowel . IMPRESSION: Contrast within gastrostomy tube, as well as stomach and proximal small bowel. POS: GRACE
== END 2017-09-14 01:38 | disposition home or self-care (01) ==
LOC: ERS 23:03
DX: Z43.1 Encounter for attention to gastrostomy (principal); J44.9 Chronic obstructive pulmonary disease, unspecified; F17.210 Nicotine dependence, cigarettes, uncomplicated; Z79.899 Other long term (current) drug therapy
CPT/HCPCS: 43760; 74018; 99406; B4087

== ENCOUNTER 2018-05-04 14:14 | Day surgery (SDC) | payer OTHER ==
[2018-05-04] MEDS ORDERED: PROPOFOL 200 MG/20 ML VIAL ONE (17:51)
--- NOTE | 2018-05-04 21:31 | OP ---
DATE OF PROCEDURE: 05/04/2018. PROCEDURE: Esophagogastroduodenoscopy with biopsy and colonoscopy with biopsy and snare polypectomy. PREOPERATIVE DIAGNOSIS: Left upper quadrant abdominal pain, nausea and vomiting, dysphagia, and diar ami. OPERATIVE NOTE: Informed consent was obtained from the patient. He was sedated with total intraveno us anesthesia. The bite block was placed and the endoscope was advanced easily to the second portion of the duodenum and retroflexion was performed in the stomach. The esophagus had grade C erosive es ophagitis. Biopsies were obtained. This was linear esophagitis throughout the distal esophagus. Th ere was a 5 mm polyp just below the Z-line at the GE junction within a small hiatal hernia. This was biopsied. The stomach had erythematous mild gastritis in the antrum. Biopsies were obtained to rul e out H. pylori. Retroflexed views in the stomach were unremarkable. There was a gastrostomy balloo n noted to be in place in the body of the stomach. The pylorus was normal. The first and second por tions of the duodenum were normal. Duodenal biopsies were taken to rule out celiac disease. The pat ient was turned around. Rectal exam was performed and was normal. The colonoscope was advanced to t he terminal ileum without difficulty. The mucosa of the terminal ileum was normal. The ileocecal va lve and appendiceal orifice were clearly identified. A 5 mm polyp was removed by cold snare polypect stveen from the transverse colon. The remainder of the colonic mucosa was normal throughout. Retroflex ed views in the rectum were normal. IMPRESSION: 1. Grade C erosive esophagitis, biopsied. 2. Small polyp at the GE junction just below the Z-line, biopsied. 3. Small hiatal hernia. 4. Erythematous antral gastritis, biopsied. 5. Normal duodenum, biopsied to rule out celiac disease. 6. Transverse colon, 5 mm polyp removed by cold snare. 7. Otherwise normal colonoscopy. RECOMMENDATIONS: 1. Await histopathology. 2. Repeat colonoscopy in 5 years if the polyp is an adenoma. 3. Follow up in GI clinic.
--- NOTE | 2018-05-07 05:57 | PQF ---
[facility] POST DISCHARGE CLINICAL DOCUMENTATION IMPROVEMENT CLARIFICATION FORM l Todays Date: 05/07/18 l Patients Name CAROLINA BELLAMY l l Admit Date 05/04/18 l Disch Date 05/04/18 Quality Assurance Tester Name Asael Nogueira Email: [email or web address] Cell: [phone] Present Clinical Indicators - Signs / Symptoms Results and Location in Medical Record [ ] Documentation of: [ ] [ ] Documentation of: [ ] [ ] Documentation of: [ ] [ ] Documentation of: [ ] [ ] Risks [ ] [ ] [ ] Treatment [ ] UNREMARKABLE COLONIC MUCOSA - RIGHT AND LEFT COLON BIOPSY I would like to clarify if a biopsy was done during the operative session. As per OP report, only snare polypectomy was done Kindly provide an addendum for the OP report within the EMR if a biopsy was done aside from the snare polypectomy. Thank you. [ ] [ ] To be completed by Physician: IRINA PHILLIPS The documentation in this patients record requires clarification to ensure coding compliance and accuracy. Check the appropriate box and include in your discharge summary. [x] __addendum dictated. Random right and left colon biopsies to evaluate diarrhea, evaluate for microscopic colitis.____ [ ] [ ] [ ] Please check this box if this does not apply to this patient [ ] Unable to determine [ ] Other diagnosis: Review the following information and exercise your independent professional judgment in responding to the clarification. Based upon the clinical findings, risk factors, and treatment, please clarify if you are treating one of the above probable or suspected diagnoses. Physician Signature: Date Time MTDD
--- NOTE | 2018-05-08 13:14 | ADD-OP ---
DATE OF PROCEDURE: 05/07/2018 ADDENDUM Random biopsies were taken from the right and left colon to evaluate for microscopic colitis.
== END 2018-05-04 18:30 | disposition home or self-care (01) ==
LOC: SDC 14:14
PROVIDERS: ATTEND Internal Medicine Gastroenterology
PROC: 0DB58ZX Excision of Esophagus, Via Natural or Artificial Opening Endoscopic, Diagnostic (ICD-10-PCS; principal; 2018-05-04)
PROC: 0DB98ZX Excision of Duodenum, Via Natural or Artificial Opening Endoscopic, Diagnostic (ICD-10-PCS; principal; 2018-05-04)
PROC: 0DBM8ZX Excision of Descending Colon, Via Natural or Artificial Opening Endoscopic, Diagnostic (ICD-10-PCS; principal; 2018-05-04)
PROC: 0DB68ZZ Excision of Stomach, Via Natural or Artificial Opening Endoscopic (ICD-10-PCS; principal; 2018-05-04)
PROC: 0DBL8ZX Excision of Transverse Colon, Via Natural or Artificial Opening Endoscopic, Diagnostic (ICD-10-PCS; principal; 2018-05-04)
PROC: 0DBK8ZX Excision of Ascending Colon, Via Natural or Artificial Opening Endoscopic, Diagnostic (ICD-10-PCS; principal; 2018-05-04)
DX: D12.3 Benign neoplasm of transverse colon (principal); K29.50 Unspecified chronic gastritis without bleeding; K22.10 Ulcer of esophagus without bleeding; K44.9 Diaphragmatic hernia without obstruction or gangrene; K31.7 Polyp of stomach and duodenum; F17.210 Nicotine dependence, cigarettes, uncomplicated; Z93.1 Gastrostomy status
CPT/HCPCS: 88305; 88312; 88313; J2704